=== PATIENT | female | born 1955 | race Caucasian/White ===

== ENCOUNTER → 2019-03-04 | Outpatient (CLI) | payer OTHER ==
[~2019-03-04] MED LIST: AIRB1TAB PO; CLIN150C14 PO; JOIN1CAP2 PO; OCUVTAB PO; ZYRT10CA5 PO
--- NOTE | 2019-03-04 10:58 | REPMRS ---
Patient History The patient states she has not had a clinical breast exam in over a year. Patient is postmenopausal. Family history of endometrial cancer at age 58 in maternal cousin, lung and brain cancer at age 55 in mother. Patient states left breast biopsy with benign results in 2000. 2D only. Digital Mammo Screening Bilat: March 04, 2019 - Exam #: [id number] Bilateral CC and MLO view(s) were taken. Technologist: Tri Miller, Technologist Prior study comparison: October 14, 2016, bilateral digital mammo screening bilat performed at [facility]. August 11, 2014, bilateral digital mammo screening bilat performed at [facility]. August 29, 2009, bilateral mammogram, performed at [facility] ([facility] FINDINGS: There are scattered fibroglandular densities. There is a stable nodular density in the the subareolar region of the right breast unchanged from multiple prior studies. There is a stable nodule in the left breast upper outer quadrant as well also unchanged. There are coarse benign calcifications visible on the left. There has been no change in the appearance of the mammogram from the prior studies. There is a mild amount of scattered fibroglandular density which is fairly symmetric. There is no interval development of dominant mass, architectural distortion, or clustered microcalcification suggestive of malignancy. Assessment: BI-RADS/ACR category 2 mammogram. Benign Findings. Recommendation Routine screening mammogram of both breasts in 1 year (for women over age 40). This patient's Lifetime Breast Cancer RIsk is estimated at 8.5 %. This mammogram was interpreted with the aid of an FDA-approved computer-aided dectection system. Electronically Signed By: Sterling Larsen MD 03/04/19 [id number]
== END ==
LOC: M RAD 09:13
PROVIDERS: ATTEND Family Medicine
DX: Z12.31 Encounter for screening mammogram for malignant neoplasm of breast (principal); Z80.49 Family history of malignant neoplasm of other genital organs; Z80.2 Family history of malignant neoplasm of other respiratory and intrathoracic organs

== ENCOUNTER 2019-03-14 09:21 | Day surgery (SDC) | payer OTHER ==
[~2019-03-14] VITALS: Ht 167.6 cm; Wt 102.4 kg
[~2019-03-14 09:21] MED LIST changes: +ACETAMINOPHEN 325 MG TAB PO PRN; +BSS with VANC/TOB/EPI for EYE CASES IR ONE; +CYCLOPENTOLATE 2% OPHTH SOLN 2ML BTL OD ONE; +HEALON DUET PRO(HEALON 10MG/ML 0.55ML & HEALON ENDOCOAT 30MG/ML 0.85ML) As Ordered ONE; +LIDOCAINE 1% SDV 5 ML VIAL As Ordered ONE; +LIDOCAINE 3.5 % 1ML OPHTH TOPICAL GEL OU ONE; +MIDAZOLAM INJ 2 MG/2 ML VIAL (J2250) As Ordered ONE; +MOXIFLOXACIN IN BSS 0.25MG/0.25ML INTRACAMERAL INJ (OR EYE ONLY)(J2280) As Ordered ONE; +OFLOXACIN 0.3 % (OCUFLOX) OPTH SOL 5ML OD ONE; +PHENYLEPHRINE 2.5% OPHTH SOL 2ML OD ONE; +PHENYLEPHRINE HCL 10 % OPHTH. SOL 5ML OD PRN; +POVIDONE-IODINE 5% OPHTH PREP SOL 30ML As Ordered ONE; +TRIAMCINOLONE PRES FR 40 MG/ML 1ML(TRIESENCE)(OR EYE ONLY)(J3300 PER 1MG) As Ordered ONE; +TROPICAMIDE 1% OPHTH SOLN 2ML OD ONE; +fentaNYL 100 MCG/2 ML INJECTION (J3010) As Ordered ONE
[2019-03-14] MEDS ORDERED: CEFUROXIME 1MG/0.1ML INTRACAMERAL INJ As Ordered ONE (10:22)
[2019-03-14] MEDS ORDERED: ACETYLCHOLINE OPHTH SOLN 1% 2ML (MIOCHOL-E) As Ordered ONE ×2 (10:52→11:28)
[2019-03-14] MEDS ORDERED: HEALON DUET PRO(HEALON 10MG/ML 0.55ML & HEALON ENDOCOAT 30MG/ML 0.85ML) As Ordered ONE (11:10)
[2019-03-14] MEDS ORDERED: BALANCED SALT IRRIGATION SOL 500ML GLASS BOTTLE (FOR OR EYE COMPOUND) As Ordered ONE (11:10)
[2019-03-14] MEDS ORDERED: TOBRADEX OPHTH OINT 3.5 GM As Ordered ONE (11:32)
[2019-03-14] MEDS ORDERED: ACETAMINOPHEN TAB 650MG DOSE (2X325MG) PO PRN (12:00)
[2019-03-14] MEDS ORDERED: TRIMETHOBENZAMIDE 300 MG CAP PO PRN (12:00)
[2019-03-14 12:20] VITALS: BP 145/63
--- NOTE | 2019-04-06 14:26 | RO ---
DATE OF PROCEDURE: 03/14/2019 PREOPERATIVE DIAGNOSES: Cataract right eye, zonular dialysis. POSTOPERATIVE DIAGNOSES: Cataract right eye, zonular dialysis. PROCEDURE: Phacoemulsification with intraocular lens implantation with the help of ORA. Intraocular lens power used was MTA4U0 11.5 along with placement of the capsular tension ring type 14A, placement of Malyugin ring and an anterior vitrectomy. SURGEON: Yuli Bryson MD OVEN LOADER: ANESTHESIA: PROCEDURE IN DETAIL: Patient was brought to the operating room, laid in supine position. The eye was prepped and draped in a sterile fashion for ophthalmic surgery and a lid speculum was placed. Sideport incision was made and EndoCoat was injected into the anterior chamber. It was noted that the patient had significant zonular dialysis. At this point, a very careful capsulorrhexis was performed followed by insertion of the capsular tension ring, but was noted that the zonular dialysis extended from almost 8 o'clock to 10 o'clock hours. Very carefully, the phacoemulsification was carried out gently. After the cortical cleanup, it was decided that there was just not enough support and the entire capsular bag was floating, hanging by just the 1 o'clock hour. It was decided to then remove the capsular bag along with the CTR and an anterior vitrectomy was then done. Following the anterior vitrectomy, the settings were at 800 cutting weight with plain balance salt solution (BSS). After this, it was decided to place the anterior chamber intraocular lens, which was MTA4U0 11.5 diopters, with the help of the Shield glide. Miochol was then placed to constrict the pupil and the wound was closed using three interrupted #10-0 nylon sutures. It was noted that the patient was previously counseled on the complications regarding zonular dialysis which were noticed preoperatively.
== END 2019-03-14 12:40 | disposition home or self-care (01) ==
LOC: M SDC 09:21
PROVIDERS: ATTEND Ophthalmology
DX: H26.9 Unspecified cataract (principal); H27.8 Other specified disorders of lens; H40.9 Unspecified glaucoma; R06.83 Snoring; J30.89 Other allergic rhinitis; E66.9 Obesity, unspecified; Z68.36 Body mass index [BMI] 36.0-36.9, adult; Z88.0 Allergy status to penicillin; Z88.2 Allergy status to sulfonamides; Z91.018 Allergy to other foods; Z79.899 Other long term (current) drug therapy; Z72.0 Tobacco use
CPT/HCPCS: 66982; 67005; 92015; C1783; J2250; J2280; J3010; J3300

== ENCOUNTER → 2020-11-12 | Outpatient (CLI) | payer OTHER ==
[~2020-11-12] MED LIST changes: -ACETAMINOPHEN 325 MG TAB PO PRN; -BSS with VANC/TOB/EPI for EYE CASES IR ONE; -CYCLOPENTOLATE 2% OPHTH SOLN 2ML BTL OD ONE; -HEALON DUET PRO(HEALON 10MG/ML 0.55ML & HEALON ENDOCOAT 30MG/ML 0.85ML) As Ordered ONE; -LIDOCAINE 1% SDV 5 ML VIAL As Ordered ONE; -LIDOCAINE 3.5 % 1ML OPHTH TOPICAL GEL OU ONE; -MIDAZOLAM INJ 2 MG/2 ML VIAL (J2250) As Ordered ONE; -MOXIFLOXACIN IN BSS 0.25MG/0.25ML INTRACAMERAL INJ (OR EYE ONLY)(J2280) As Ordered ONE; -OFLOXACIN 0.3 % (OCUFLOX) OPTH SOL 5ML OD ONE; -PHENYLEPHRINE 2.5% OPHTH SOL 2ML OD ONE; -PHENYLEPHRINE HCL 10 % OPHTH. SOL 5ML OD PRN; -POVIDONE-IODINE 5% OPHTH PREP SOL 30ML As Ordered ONE; -TRIAMCINOLONE PRES FR 40 MG/ML 1ML(TRIESENCE)(OR EYE ONLY)(J3300 PER 1MG) As Ordered ONE; -TROPICAMIDE 1% OPHTH SOLN 2ML OD ONE; -fentaNYL 100 MCG/2 ML INJECTION (J3010) As Ordered ONE
--- NOTE | 2020-11-12 13:17 | REPMRS ---
Patient History The patient states she has not had a clinical breast exam in over a year. Family history of endometrial cancer at age 58 in maternal cousin, unknown cancer at age 55 in mother. 3D TOMOSYNTHESIS WAS PERFORMED. [facility] lifetime risk for breast cancer is 7.9%. Volpara breast density b. Digital Woman Screen Mammo: November 12, 2020 - Exam #: [id number] Bilateral CC and MLO view(s) were taken. Technologist: Tri Miller, Technologist Prior study comparison: March 04, 2019, bilateral digital mammo screening bilat, performed at [facility]. October 14, 2016, bilateral digital mammo screening bilat, performed at [facility]. FINDINGS: There are scattered fibroglandular densities. There has been no change in the appearance of the mammogram from the prior studies. There is a mild amount of residual fibroglandular tissue which is fairly symmetric. There is no interval development of dominant mass, architectural distortion, or clustered microcalcification suggestive of malignancy. Assessment: BI-RADS/ACR category 1 mammogram. Negative Mammogram. Recommendation Routine screening mammogram in 1 year (for women over age 40). This mammogram was interpreted with the aid of an FDA-approved computer-aided dectection system. Electronically Signed By: Josh Garner MD 11/12/20 [id number]
== END ==
LOC: M WHC 10:41
PROVIDERS: ATTEND Student in an Organized Health Care Education/Training Program
DX: Z12.31 Encounter for screening mammogram for malignant neoplasm of breast (principal); Z80.8 Family history of malignant neoplasm of other organs or systems

== ENCOUNTER 2021-01-04 08:02 | Day surgery (SDC) | payer OTHER ==
[~2021-01-04] VITALS: Ht 167.6 cm; Wt 103.4 kg
[~2021-01-04 08:02] MED LIST changes: -AIRB1TAB PO; +CETI10CH PO; -CLIN150C14 PO; +CLIN150C15 PO; +COMB0.2S OU; +D31000TA2 PO; +JOINCAP2 PO; +LIDOCAINE 2% 100MG/5ML SDV (FOR ANES.) As Ordered ONE; +MV-M1TAB29 PO; +NS 1,000 ML IV ONE; +STEROID TOP; +ZINC1TAB2 PO; +areds PO; +propofoL 200 MG/20 ML VIAL As Ordered ONE
--- OUTSIDE RECORDS SUMMARY | 2021-01-04 08:06 | CCD | Continuity of Care Document ---
Author Author Margarette SHAH [place] Organization Unknown Address [address] [place] [address] Phone [phone] Care Team Providers Care Slabber Name Role Phone Chetan Crespo MD AUTM Unavailable [facility] AUTM [phone] [facility] AUTM [phone] Problems Description No Information Available Social History Type Date Description Comments Sex Unknown Allergies, Adverse Reactions, Alerts Description No Information Available Medications Description No Information Available Immunizations Description No Information Available Vital Signs Description No Information Available Results Description No Information Available Procedures Description No Information Available Medical Devices Description No Information Available Encounters Description No Information Available Assessments Description No Information Available Plan of Treatment No Information Available Functional Status Description No Information Available Mental Status Description No Information Available Referrals Description No Information Available
--- OUTSIDE RECORDS SUMMARY | 2021-01-04 08:06 | CCD | Continuity of Care Document ---
Author Author Margarette [facility]APATA [facility] Organization Unknown Address [address], [address] [place] [address] Phone [phone] Care Team Providers Care Spray Gun Sizer Name Role Phone Soni Cao D.O. [phone] Problems Description No Active Problems Social History Type Date Description Comments Sex Unknown ETOH Use Denies alcohol use Tobacco Use Start: Unknown Light tobacco smoker (10 or fewe r cigarettes/day) Tobacco Use Start: Unknown Report Cessation Counseling Was Provided Allergies, Adverse Reactions, Alerts Active Allergies Reaction Severity Comments Date Penicillin 11/09/2009 Sulfa 11/09/2009 Medications Active Medications SIG Qnty Indications Ordering Provide r Date Suprep Bowel Prep Kit 17.5-3.13-1.6GM/177ML Solution take per doctor's bowel prep instructions. 354ml Z12.1 1 Kevin Fermin MD 12/13/[address] take 4 tabs by mouth prior to procedure per instructions. 4tabs Z12.11 Kevin Fermin MD 12/13/2020 Zyrtec Allergy 10mg Tablets Unknown Combigan 0.2-0.5% Solution Unknown Icaps Areds Formula Tablets 1 bid Unknown Vitamin D 125mcg (5000 Ut) Capsules Daily Unknown Airborne Chewtabs Daily Unknown Zinc 50mg Tablets 1 tab by mouth every day after meals Unknown Glucosamine Chondroitin 1500 Complex 1500Com Capsules Daily Unknown Immunizations Description No Information Available Vital Signs Date Vital Result Comment 12/13/2020 1:11pm BP Systolic 124 mmHg BP Diastolic 68 mmHg Height 66 inches 5'6" Weight 232.00 lb BMI (Body Mass Index) 37.4 kg/m2 [place] Body Weight 130 lb Weight 105.235 kg BSA (Body Surface Area) 2.13 m2 Results Description No Information Available Procedures Description No Information Available Medical Devices Description No Information Available Encounters Description No Information Available Assessments Date Code Description Provider 12/13/2020 Z12.11 Encounter for screening for maria t gnant neoplasm of colon Mouna AlvaradoWILLIAM viveros 12/13/2020 R12 Heartburn Mouna Avina WILLIAM ricardo Plan of Treatment 12/13/2020 - Mouna AlvaradoWILLIAM viveros* Z12.11 Encounter for screening for malignant neoplasm of colon * R12 Heartburn * * New Medication:* Suprep Bowel Prep Kit 17.5-3.13-1.6 GM/177ML * Dulcolax 5 mg * New Orders:* Colonoscopy, Ordered: 12/13/20 * Comments:* Will arrange for colonoscopy. Reviewed risks and benefits of the procedure, as well as other options, with the patient. Bowel prep procedure was discussed with patient, as well as risks and side effects associated with the bowel prep. Patient verbalized understanding of all of the above and is in agreement to proceed. Patient will seek medical attention for any acute changes. Will monitor. * Follow up:* As scheduled, sooner if needed. Functional Status Description No Information Available Mental Status Description No Information Available Referrals Refer to Reason for Referral Status Appt Date Kevin Fermin MD Office Consult New or Establ ished PT - - 10/06/2020- 04/04/2021 Office/Outpatient Established - - 10/06/2020 - 10/06/2021 Dx: [place] screening, encounter screening malignant neoplasm of colon Closed 12/13/2020 [facility], Gastroenterology [address], [address] [place] [address] [phone]
--- OUTSIDE RECORDS SUMMARY | 2021-01-04 08:06 | CCD | Continuity of Care Document ---
Author Author Margarette SHAH Organization Unknown Address [address] [place] [address] Phone [phone] Care Team Providers Care Woods Rider Name Role Phone Chetan Crespo MD AUTM Unavailable [facility] AUTM [facility] AUTM [phone] Problems Description No Information Available Social History Type Date Description Comments Sex Unknown Allergies, Adverse Reactions, Alerts Description No Information Available Medications Description No Information Available Immunizations Description No Information Available Vital Signs Description No Information Available Results Description No Information Available Procedures Description No Information Available Medical Devices Description No Information Available Encounters Description No Information Available Assessments Date Code Description Provider 10/24/2020 Z20.828 Contact with and (colunga spected) exposure to other viral communicable diseases MARTHA Colon Plan of Treatment No Information Available Functional Status Description No Information Available Mental Status Description No Information Available Referrals Description No Information Available
--- OUTSIDE RECORDS SUMMARY | 2021-01-04 08:06 | CCD ---
Author Author [facility] Organization [facility] Address Unknown Phone Unavailable Support Name Relationship Address Phone RE Next Of Kin Unknown Unavailable [facility]* Next Of Kin [address] [place] [address] [facility] Next Of Kin [address] [place] [address] Michelle MUNOZ Next Of Kin [address] [place] [address] KRISTEN MUNOZ ECON [address] [place] [address] Unavailable Re-disclosure Warning The records that you are about to access may contain information from federally-assisted alcohol or drug abuse programs. If such information is present, then the following federally mandated warning applies: This information has been disclosed to you from records protected by federal confidentiality rules (42 CFR part 2). The federal rules prohibit you from making any further disclosure of this information unless further disclosure is expressly permitted by the written consent of the person to whom it pertains or as otherwise permitted by 42 CFR part 2. A general authorization for the release of medical or other information is NOT sufficient for this purpose. The Federal rules restrict any use of the information to criminally investigate or prosecute any alcohol or drug abuse patient.The records that you are about to access may contain highly sensitive health information, the redisclosure of which is protected by Article 27-F of the [place] State Public Health law. If you continue you may have access to information: Regarding HIV / AIDS; Provided by facilities licensed or operated by the [facility] Office of Mental Health; or Provided by the [facility] Office for People With Developmental Disabilities. If such information is present, then the following [facility] mandated warning applies: This information has been disclosed to you from confidential records which are protected by state law. State law prohibits you from making any further disclosure of this information without the specific written consent of the person to whom it pertains, or as otherwise permitted by law. Any unauthorized further disclosure in violation of state law may result in a fine or detention sentence or both. A general authorization for the release of medical or other information is NOT sufficient authorization for further disc losure. Encounters Encounter Providers Location Date Indications Data Source(s ) [facility] [address] [address] 02/09/2020 12:00:00 AM EDT eCW1 ([facility]) [facility] [address] [address] 02/09/2020 12:00:00 AM EDT eCW1 ([facility]) [facility] [address] [address] 12/12/2019 12:00:00 AM EST eCW1 ([facility]) Medications Medication Brand Name Start Date Product Form Dose Route Admi nistrative Instructions Pharmacy Instructions Status Indications Reaction Description Data Source(s) Suprep Bowel Prep Kit Suprep Bowel Prep Kit 12/13/2020 12:00:00 AM EST active [facility] ([facility]) Bisacodyl 5 MG Delayed Release Oral Tablet [Dulcolax] Dulcol ax 12/13/2020 12:00:00 AM EST ORAL active M [facility] ([facility], ) Insurance Providers Payer name Policy type / Coverage type Policy ID Covered republican ID Covered republican's relationship to garcia Policy Garcia Plan Information [facility] [id number] [facility] [id number] [facility] [id number] [facility] [id number] [facility] [id number] [facility] [id number] HEA [id number] S [id number] [facility] [id number] [facility] [id number] ANSI-Not a Secondary Insurance [id number] [facility] [id number] [facility] [id number] [facility] [id number] S [id number] [facility] [id number] 2 [id number] Results ID Date Data Source [id number] 12/31/2020 10:13:00 AM EST [facility] Name Value Range Interpretation Code Description Data Renae rce(s) Supporting Document(s) SARS coronavirus 2 RNA Not Detected [facility] [place] This lab was ordered by [facility] Laboratory and reported by [facility]. ID Date Data Source [id number] 10/24/2020 12:00:00 AM EST [facility] Name Value Range Interpretation Code Description Data Renae rce(s) Supporting Document(s) SARS coronavirus 2 Ag [facility] This lab was ordered by [facility] and reported by [facility]. Procedure Vital Signs ID Date Data Source UNK Name Value Range Interpretation Code Description Data Source(s) Body surface area Derived from formula 2.13 m2 2.13 m2 [facility] ([facility]) Body weight 105.235 kg 105.235 kg [facility] ([facility]) [place] body weight 130 [lb_av] 130 [lb_av] [facility] Body mass index (BMI) [Ratio] 37.4 kg/m2 37.4 k g/m2 [facility] ([facility]) Body weight 232.00 [lb_av] 232.00 [lb_av] [facility] Body height 66 [in_i] 66 [in_i] [facility] ([facility]) 5'6" Diastolic blood pressure 68 mm[Hg] 68 mm[Hg] [facility] ([facility]) Systolic blood pressure 124 mm[Hg] 124 mm[Hg] [facility]
[2021-01-04] MEDS ORDERED: propofoL 200 MG/20 ML VIAL As Ordered ONE (09:24)
--- NOTE | 2021-01-04 09:53 | ROOR ---
Patient Name: Margarette Keen Procedure Date: 01/04/2021 8:58 AM Date of : 1955 Age: 65 Room: [facility] Gender: Female Note Status: Finalized Procedure: Colonoscopy Indications: Screening for colorectal malignant neoplasm Providers: Farrukh Hall MD Referring MD: Soni Cao Do Requesting Provider: Medicines: Monitored Anesthesia Care Complications: No immediate complications. Procedure: Pre-Anesthesia Assessment: - Prior to the procedure, a History and Physical was performed, and patient medications and allergies were reviewed. The patient is competent. The risks and benefits of the procedure and the sedation options and risks were discussed with the patient. All questions were answered and informed consent was obtained. Patient identification and proposed procedure were verified by the physician, the nurse and the anesthesiologist in the procedure room. Mental Status Examination: alert and oriented. Airway Examination: normal oropharyngeal airway and neck mobility. Respiratory Examination: clear to auscultation. CV Examination: normal. Prophylactic Antibiotics: The patient does not require prophylactic antibiotics. Prior Anticoagulants: The patient has taken no previous anticoagulant or antiplatelet agents. ASA Grade Assessment: II - A patient with mild systemic disease. After reviewing the risks and benefits, the patient was deemed in satisfactory condition to undergo the procedure. The anesthesia plan was to use monitored anesthesia care (MAC). Immediately prior to administration of medications, the patient was re-assessed for adequacy to receive sedatives. The heart rate, respiratory rate, oxygen saturations, blood pressure, adequacy of pulmonary ventilation, and response to care were monitored throughout the procedure. The physical status of the patient was re-assessed after the procedure. The Colonoscope was introduced through the anus and advanced to the terminal ileum, with identification of the appendiceal orifice and IC valve. The colonoscopy was performed without difficulty. The patient tolerated the procedure well. The quality of the bowel preparation was good. The ileocecal valve, appendiceal orifice, and rectum were photographed. Scope insertion time was 2 minutes. Scope withdrawal time was 9 minutes. The total duration of the procedure was 11 minutes. Findings: The perianal and digital rectal examinations were normal. The terminal ileum appeared normal. Two sessile polyps were found in the transverse colon. The polyps were 6 to 12 mm in size. These polyps were removed with a hot snare. Resection and retrieval were complete. To close a defect after polypectomy, one hemostatic clip was successfully placed. There was no bleeding at the end of the procedure. Verification of patient identification for the specimen was done by the physician and nurse using the patient's name, date and medical record number. Estimated blood loss was minimal. A 10 mm polyp was found in the rectum. The polyp was sessile. The polyp was removed with a hot snare. Resection and retrieval were complete. Non-bleeding external and internal hemorrhoids were found during retroflexion. The hemorrhoids were medium-sized. Impression: - The examined portion of the ileum was normal. - Two 6 to 12 mm polyps in the transverse colon, removed with a hot snare. Resected and retrieved. Clip was placed. - One 10 mm polyp in the rectum, removed with a hot snare. Resected and retrieved. - Non-bleeding external and internal hemorrhoids. Recommendation: - Patient has a contact number available for emergencies. The signs and symptoms of potential delayed complications were discussed with the patient. Return to normal activities tomorrow. Written discharge instructions were provided to the patient. - High fiber diet. - Continue present medications. - Await pathology results. - Use fiber, for example Citrucel, Fibercon, Konsyl or Metamucil. - Telephone GI clinic for pathology results in 2 weeks. - Repeat colonoscopy in 3 years for surveillance based on pathology results. - Return to primary care physician. Procedure Code(s): --- Professional --- 33895, Colonoscopy, flexible; with removal of tumor(s), polyp(s), or other lesion(s) by snare technique Diagnosis Code(s): --- Professional --- Z12.11, Encounter for screening for malignant neoplasm of colon K64.8, Other hemorrhoids K63.5, Polyp of colon K62.1, Rectal polyp CPT copyright 2019 [employer]. All rights reserved. The codes documented in this report are preliminary and upon packing inspector review may be revised to meet current compliance requirements. Farrukh Hall MD Farrukh Hall MD 01/04/2021 9:53:40 AM Electronically signed by Farrukh Hall MD Number of Addenda: 0 Note Initiated On: 01/04/2021 8:58 AM Estimated Blood Loss: Estimated blood loss was minimal.
[2021-01-04 09:58] VITALS: BP 116/58
== END 2021-01-04 09:59 | disposition home or self-care (01) ==
LOC: M OPP 08:02
PROVIDERS: ATTEND Internal Medicine Gastroenterology
DX: Z12.11 Encounter for screening for malignant neoplasm of colon (principal); D12.3 Benign neoplasm of transverse colon; D12.8 Benign neoplasm of rectum; K64.8 Other hemorrhoids; R12 Heartburn; L40.9 Psoriasis, unspecified; F17.210 Nicotine dependence, cigarettes, uncomplicated; M19.90 Unspecified osteoarthritis, unspecified site; Z88.0 Allergy status to penicillin; Z88.2 Allergy status to sulfonamides; Z91.018 Allergy to other foods; Z91.040 Latex allergy status; Z79.899 Other long term (current) drug therapy; Z80.1 Family history of malignant neoplasm of trachea, bronchus and lung; Z80.8 Family history of malignant neoplasm of other organs or systems

== ENCOUNTER → 2021-01-08 | Outpatient (CLI) | payer OTHER ==
[~2021-01-08] MED LIST changes: -LIDOCAINE 2% 100MG/5ML SDV (FOR ANES.) As Ordered ONE; -NS 1,000 ML IV ONE; -propofoL 200 MG/20 ML VIAL As Ordered ONE
--- NOTE | 2021-01-09 02:43 | REP ---
INDICATION: S16.1 STRAIN OF MUSCLE FASCIA AND TENDON COMPARISON: None. TECHNIQUE: AP, lateral, flexion/extension, bilateral oblique, and open-mouth views. FINDINGS: Alignment and lordosis is maintained. There is no evidence for acute fracture / compression injury or subluxation. Focal advanced degenerative changes at C6-7 include endplate sclerosis, osteophytosis, and disc space narrowing. Moderate multilevel age-related changes noted throughout the remainder of the exam. Stable chronic 1 mm anterolisthesis at C4-5 noted. Neural foramen appear patent. C1-C2 articulation and odontoid process are normal. IMPRESSION: Degenerative changes as noted above. <Electronically signed by Buck Zuniga > 01/09/21 [id number]
== END ==
LOC: M WUC 14:23
PROVIDERS: ATTEND Physician Assistant
DX: S16.1XXA Strain of muscle, fascia and tendon at neck level, initial encounter (principal); W18.30XA Fall on same level, unspecified, initial encounter; Y92.009 Unspecified place in unspecified non-institutional (private) residence as the place of occurrence of the external cause

== ENCOUNTER 2021-06-12 12:28 | Emergency (ER) | payer OTHER ==
[~2021-06-12] VITALS: Ht 167.6 cm; Wt 104.5 kg
[2021-06-12 15:15] LABS: BASO % 0.4 % (0.0-1.0); EOS % 0.4 % (0.0-3.0); HEMOGLOBIN 13.5 g/dl (12.0-15.5); LYMPH # 1.2 10^3/uL (1.5-5.0); LYMPH % 16.9 % (24.0-44.0); MEAN CORPUSCULAR HEMOGLOBIN 29.1 pg (27.0-33.0); MEAN CORPUSCULAR HGB CONC 32.9 g/dl (32.0-36.5); MEAN CORPUSCULAR VOLUME 88.4 fl (80.0-96.0); MONO # 0.4 10^3/uL (0.0-0.8); NEUTROPHILS # 5.4 10^3/uL (1.5-8.5); PLATELET COUNT, AUTOMATED 262 10^3/uL (150-450); RED BLOOD COUNT 4.64 10^6/uL (4.00-5.40)
[2021-06-12] MEDS ORDERED: MORPHINE 4 MG/ML 1ML VIAL/SYRINGE (J2270) IV ONE (15:15)
[2021-06-12] MEDS ORDERED: KETOROLAC 30 MG/ML 1ML VIAL IV ONE (15:25)
[2021-06-12 15:32] LABS: ALBUMIN 3.2 GM/DL (3.2-5.2); ALT/SGPT 20 U/L (12-78); BILIRUBIN,DIRECT < 0.1 MG/DL (0.0-0.2); BILIRUBIN,TOTAL 0.3 MG/DL (0.2-1.0); LIPASE 44 U/L (73-393); TOTAL PROTEIN 6.4 GM/DL (6.4-8.2)
--- NOTE | 2021-06-12 15:56 | REP ---
INDICATION: left flank pain, eval for ureteral calc, hydro COMPARISON: 05/12/2013. TECHNIQUE: CT Scan of the abdomen and pelvis was performed without intravenous contrast. Sagittal and coronal reconstruction images performed. FINDINGS: Lung bases: There is a stable 7 mm nodule in the right lower lobe laterally. Liver: Multiple hypodense nodules in the liver are measuring water density compatible with cysts. The largest in the left lobe is 1.7 cm and the largest in the inferior right lobe is 1.8 cm. Gallbladder: Unremarkable. Spleen: Grossly unremarkable. Adrenals: Normal. Pancreas: Grossly unremarkable.. Kidneys: No hydronephrosis or nephrolithiasis. Ureters demonstrate no dilatation or calculus. Small and large bowel: Grossly unremarkable. Free fluid: None. Abdominal aorta: No aneurysm. Adenopathy: None. Appendix: Not inflamed. Osseous structures: There are degenerative changes of the spine without compression deformity.. Pelvis: No mass. No bladder calculus seen. IMPRESSION: Stable chronic findings as discussed above. No renal or ureteral calculus and no hydroureteronephrosis. Normal appendix. No free air or obstruction. No free fluid. <Electronically signed by Josh Garner > 06/12/21 [id number]
[2021-06-12] MEDS ORDERED: diazePAM 5MG TABLET PO ONE (16:40)
[2021-06-12] MEDS ORDERED: VALI5TAB PO (17:36)
[2021-06-12 17:45] VITALS: BP 138/72
== END 2021-06-12 17:58 | disposition home or self-care (01) ==
LOC: M ED 12:28 → EDBD 12:28 → M ED 17:58
DX: S39.012A Strain of muscle, fascia and tendon of lower back, initial encounter (principal); Y92.9 Unspecified place or not applicable; Y93.9 Activity, unspecified; Y99.9 Unspecified external cause status; K21.9 Gastro-esophageal reflux disease without esophagitis; Z87.891 Personal history of nicotine dependence; Z88.0 Allergy status to penicillin; Z88.1 Allergy status to other antibiotic agents; Z88.2 Allergy status to sulfonamides; Z91.018 Allergy to other foods; Z91.040 Latex allergy status
CPT/HCPCS: 74176; 80047; 80076; 81001; 83690; 85025; 96374; 96375; 99284; J1885; J2270

== ENCOUNTER 2023-11-08 14:48 | Emergency (ER) | payer OTHER, MEDICARE ==
[~2023-11-08] VITALS: Ht 167.6 cm; Wt 90.5 kg
[~2023-11-08 14:48] MED LIST changes: -CLIN150C15 PO; +CLIN150C17 PO; -D31000TA2 PO; +VALI5TAB PO; +VITA100093 PO
[2023-11-08] MEDS ORDERED: COMB0.2S (15:00)
[2023-11-08] MEDS ORDERED: XALA0.007 (15:00)
[2023-11-08] MEDS ORDERED: LIDOCAINE W/EPINEPHRINE 1% 20ML VIAL SC ONE (16:55)
[2023-11-08] MEDS ORDERED: NAPROXEN 250 MG TAB PO ONE (16:55)
[2023-11-08] MEDS ORDERED: methocarbamoL 500 MG TAB PO ONE (16:55)
[2023-11-08] MEDS ORDERED: NEOSPORIN OINT 0.9 GM PKT TOP ONE (17:45)
[2023-11-08 18:06] VITALS: BP 144/87; TEMP 98.8; O2SAT 95
== END 2023-11-08 18:07 | disposition home or self-care (01) ==
LOC: M ED 14:48
DX: S81.811A Laceration without foreign body, right lower leg, initial encounter (principal); W01.198A Fall on same level from slipping, tripping and stumbling with subsequent striking against other object, initial encounter; Y92.009 Unspecified place in unspecified non-institutional (private) residence as the place of occurrence of the external cause; Y93.89 Activity, other specified; Y99.9 Unspecified external cause status; Z79.52 Long term (current) use of systemic steroids; Z79.899 Other long term (current) drug therapy; Z88.0 Allergy status to penicillin; Z88.2 Allergy status to sulfonamides; Z91.040 Latex allergy status; Z91.018 Allergy to other foods; Z91.048 Other nonmedicinal substance allergy status

== ENCOUNTER 2024-01-13 10:01 | Day surgery (SDC) | payer MEDICARE, OTHER ==
[~2024-01-13] VITALS: Ht 167.6 cm; Wt 90.9 kg
[~2024-01-13 10:01] MED LIST changes: +CIPRHCOTIC; +COMB0.2S; +CYCLOPENTOLATE 1% OPHTH SOLN 2ML BTL OD SCH; +GALZ50CA PO; +METF500T13 PO; +OMEG12003 PO; +PHENYLEPHRINE 10% OPHTH SOL 5ML OD PRN; +PHENYLEPHRINE 2.5% OPHTH SOL 2ML OD SCH; +PRES1CAP PO; +TROPICAMIDE 1% OPHTH SOLN 15ML OD SCH; +XALA0.007
[2024-01-13] MEDS: OFLOXACIN 0.3 % (OCUFLOX) OPTH SOL 5ML OD ONE (11:53)
[2024-01-13] MEDS: LIDOCAINE 3.5 % 1ML OPHTH TOPICAL GEL OU ONE (11:54)
[2024-01-13] MEDS: LIDOCAINE 1% SDV 5ML VIAL As Ordered ONE (12:14)
[2024-01-13] MEDS: CARBACHOL 0.01% OPHTH SOLN 1.5ML VIAL As Ordered ONE (12:16)
[2024-01-13] MEDS: CEFUROXIME 1MG/0.1ML INTRACAMERAL INJ As Ordered ONE (12:17)
[2024-01-13] MEDS ORDERED: MIDAZOLAM INJ 2MG/2ML VIAL As Ordered ONE (12:22)
[2024-01-13] MEDS ORDERED: fentaNYL 100 MCG/2 ML INJECTION As Ordered ONE (12:22)
[2024-01-13 12:27] VITALS: BP 146/70; TEMP 97.7; O2SAT 96
== END 2024-01-13 12:47 | disposition home or self-care (01) ==
LOC: M SDC 10:01
PROVIDERS: ATTEND Ophthalmology
DX: T85.22XA Displacement of intraocular lens, initial encounter (principal); J30.2 Other seasonal allergic rhinitis; Z88.0 Allergy status to penicillin; Z88.2 Allergy status to sulfonamides; Z91.018 Allergy to other foods; R73.03 Prediabetes; R06.83 Snoring; Z79.899 Other long term (current) drug therapy; L40.9 Psoriasis, unspecified
CPT/HCPCS: 66825; J0697; J2250; J3010

== ENCOUNTER → 2025-05-29 | Outpatient (CLI) | payer MEDICARE, OTHER ==
[~2025-05-29] MED LIST changes: -CYCLOPENTOLATE 1% OPHTH SOLN 2ML BTL OD SCH; -GALZ50CA PO; -PHENYLEPHRINE 10% OPHTH SOL 5ML OD PRN; -PHENYLEPHRINE 2.5% OPHTH SOL 2ML OD SCH; -TROPICAMIDE 1% OPHTH SOLN 15ML OD SCH; +ZINC50CA4 PO
== END ==
LOC: M WHC 12:12
PROVIDERS: ATTEND Internal Medicine
DX: Z12.31 Encounter for screening mammogram for malignant neoplasm of breast (principal)